=== PATIENT | male | born 1990 | race Caucasian/White ===

== ENCOUNTER 2023-01-21 17:08 | Emergency (ER) | payer OTHER ==
[~2023-01-21] VITALS: Ht 172.7 cm; Wt 104.3 kg
[2023-01-21 17:08] VITALS: BP_SYST 153; PULSE 77; RESP 17; TEMP 97.3; O2SAT 100
[2023-01-21] MEDS ORDERED: IBUPROFEN 800 MG TABLET PO ONE (17:30)
[2023-01-21] MEDS ORDERED: IBUP-1971 PO (18:16)
[2023-01-21] MEDS ORDERED: DICL20GE TP (18:16)
== END 2023-01-21 18:53 | disposition home or self-care (01) ==
LOC: SED 17:08
DX: S20.212A Contusion of left front wall of thorax, initial encounter (principal); Z79.899 Other long term (current) drug therapy; V43.62XA Car passenger injured in collision with other type car in traffic accident, initial encounter; Y93.89 Activity, other specified; Y92.89 Other specified places as the place of occurrence of the external cause; Y99.8 Other external cause status
CPT/HCPCS: 99284; 71045; 93005; 73030; J7030